=== PATIENT | female | born 1945 | race Caucasian/White ===

== ENCOUNTER 2016-08-18 02:17 | Inpatient (IN) | payer MEDICARE, OTHER ==
[2016-08-15 13:23] LABS: BILIRUBIN NEGATIVE (NEGATIVE); BLOOD NEGATIVE (NEGATIVE); CLARITY SL CLOUDY (CLEAR); COLOR YELLOW (YELLOW); GLUCOSE NEGATIVE (NEGATIVE); KETONE NEGATIVE (NEGATIVE); LEUKO ESTERASE TRACE (NEGATIVE); NITRITE NEGATIVE (NEGATIVE); PH 5.5 (5.0-9.0); PROTEIN NEGATIVE (NEGATIVE)
[2016-08-15 13:29] LABS: BACTERIA TRACE; EPITHELIAL CELLS 16-20; URINE REFLEX COMMENT YES (NO)
[2016-08-15 13:30] LABS: HYALINE CAST 0-2
[2016-08-18] VITALS (8 sets, daily range): BP systolic 105–165; BP diastolic 42–68
[~2016-08-18] VITALS: Ht 172.7 cm; Wt 99.4 kg
--- NOTE | ~2016-08-18 | O ---
[place], [place] OPERATIVE NOTE NAME: ERICK REYNOLDS [facility] #: [id number] UNIT #: [id number] ROOM: [facility] DOCTOR: CHUANCEY GRIFFITH DO BIRTHDATE: [birth year] DOS: 08/18/2016 PREOPERATIVE DIAGNOSIS: Left proximal humerus fracture with displacement and intra-articular fracture of the head. POSTOPERATIVE DIAGNOSIS: Left proximal humerus fracture with displacement and intra-articular fracture of the head. PROCEDURE: Left proximal humerus hemiarthroplasty. SURGEON: Chauncey Griffith DO. ORDER MANAGEMENT SPECIALIST: Obey Collins. ANESTHESIA: ALISIA Sanchez. INDICATIONS: The patient is a 71-year-old female with a history of a fall at her home on August 06, 2016, suffering a comminuted displaced proximal humerus fracture with intraarticular involvement. The risks and benefits of surgery were explained to the patient preoperatively. Preoperative labs and x-rays were obtained including preoperative medical clearance. The left upper extremity was marked in the holding room. The patient was brought to the operative suite. A general anesthetic with endotracheal intubation was performed. The patient was placed in a modified beach chair position with prep and drape of the right upper extremity free. A timeout was performed. An extended deltopectoral incision was marked with a marking pen. The area was injected with Marcaine 0.5% with epinephrine. The patient received clindamycin preoperatively. The incision was made sharply with a scalpel. Cephalic vein was identified and mobilized and then tied off. The deltopectoral fascia was released and the incision progressed to the level of the conjoined tendon. The conjoined tendon was retracted and the bicipital groove and greater and lesser tuberosity were identified. The inner fold between the subscapularis and the supraspinatus was identified and the biceps tendon was noted to be intact. A suture was placed at the level of the greater and lesser tuberosity fragments and these were retracted. The humeral head was identified and noted to be split. This was removed using an oscillating saw to remove the portion of metaphysis remaining. The humeral shaft was prepared using the T-handle handheld reamer and progressed in 1 mm increments until a snug fit was noted. This appeared to be a 10 mm reamer. The trial was put into place. The retroversion was obtained and the head length was measured. The trial head was put into place and the reduction was performed. C-arm was utilized to evaluate the position and the greater and lesser tuberosity were temporarily brought back into place. When the appropriate size stem and head were determined, the prosthesis was placed with the anterolateral fin just lateral to the bicipital groove. The fit was evaluated and found to be [place], [place] OPERATIVE NOTE NAME: ERICK REYNOLDS UNIT #: [id number] ROOM: 532 DOCTOR: CHAUNCEY GRIFFITH DO BIRTHDATE: [birth year] adequate. The humeral head prosthesis 44 mm x 17 mm was cold welded into place. The reduction was again performed and x-rays confirmed satisfactory position. There were 2 sutures passed through the slots within the fins that were 5-0 FiberWire type sutures. These were used to reattach the greater and lesser tuberosity in a [id number] fashion. The biceps tendon was allowed to return to the bicipital groove. Supraspinatus was repaired. The reduction was again performed and verified. The repair was reinforced. Range of motion was performed under C-arm guidance. The area was copiously irrigated with normal saline. The wound was closed in a layered fashion with 2-0 Vicryl, 6-0 Vicryl, 3-0 Vicryl and skin parker. The incision was completed with parker. The area was covered with Xeroform, 4 x 4s, ABDs, and Tegaderm dressing. The patient was placed in a sling and swathe with an abduction pillow in place. The patient was returned to supine position. The anesthetic was reversed. The patient was extubated and taken to the recovery room in satisfactory condition. SPONGE AND NEEDLE COUNT: Correct. ESTIMATED BLOOD LOSS: 300 mL. SPECIMENS: Humeral head. DRAINS: None. PACKING: None. COMPLICATIONS: None. FINDINGS: Comminuted displaced humeral head and proximal humerus fracture. IMPLANTS: 1. Biomet comprehensive humeral fracture stem porous 10 mm x 122 mm. 2. Bio-modular humeral head 44 mm x 17 mm. [place], [place] OPERATIVE NOTE NAME: ERICK REYNOLDS UNIT #: [id number] ROOM: 532 DOCTOR: MARY DOCHAUNCEY BIRTHDATE: [birth year] CHAUNCEY GRIFFITH DO CM:ALMAORD:OPERATIVE NOTE [id number] 143 CHAUNCEY GRIFFITH DO 09/01/16 143 interface
[~2016-08-18 02:17] MED LIST: AMLODIPINE BESY1 C11 PO; ASPIRIN81 M1 PO; ATIVAN1 MG PO; CELEBREX100 MG PO; CIPRO500 MG PO; CYMBALTA60 MG PO; DULOXETINE HCL60 MG PO; FLAXSEED1000 MG PO; GLUCOSAMINE1000 MG PO; HYDROCHLOROTHIA25 M1 PO; HYDROCODONE BIT1 T11 PO; LOMOTIL 0.025 M1 TAB PO; LYRICA100 M1 PO; Lopressor25 MG PO; MAG-OX 400400 MG PO; NAPROSYN500 MG PO; PANTOPRAZOLE SO40 MG PO; VITAMIN D1000 IU PO; ZOFRAN ODT8 MG PO; ZYRTEC10 M3 PO; [UNRECOGNIZED DRUG - OTHER] PO
[2016-08-18 16:47] LABS: HEMATOCRIT 32.3 % (37.0-47.0); HEMOGLOBIN 10.4 g/dl (12.0-16.0); HEMOGLOBIN 10.5 g/dl (12.0-16.0); MEAN CELL VOLUME 91.5 fl (81.0-99.0); MEAN CORPUSCULAR HGB 29.7 pg (27.0-31.0); MEAN CORPUSCULAR HGB CONC 32.5 g/dl (33.0-37.0); MEAN PLATELET VOLUME 9.2 fl (9.6-12.3); PLATELET COUNT AUTOMATED 441 10*3/uL (130-400); RED BLOOD COUNT 3.53 10*6/uL (4.10-5.10); RED CELL DISTRI WIDTH 13.5 % (0-14.5); WHITE BLOOD COUNT 16.6 10*3/uL (4.8-10.8)
[2016-08-18 17:05] LABS: LYMPHOCYTE # 1.5 10*3/uL (1.3-4.4); MONOCYTE # 0.3 10*3/uL (0.1-1.0); NEUTROPHIL # 14.8 10*3/uL (2.3-7.9); NEUTROPHILS 89 % (47-73); PLATELET SUFFICIENCY HIGH (NORMAL); TOTAL CELLS COUNTED 100 #CELLS
[2016-08-18] MEDS ORDERED: BACTRIM DS 8001 TA1 PO (18:31)
[2016-08-18] MEDS ORDERED: BACTROBAN OINT0.9 GM T (18:31)
[2016-08-18] MEDS ORDERED: VITAMIN D-32000 UNIT PO (18:33)
[2016-08-18] MEDS ORDERED: CELECOXIB200 M1 PO (18:35)
[2016-08-19] VITALS: BP 149/71
[2016-08-19 06:21] LABS: BASO % 0.1 % (0.0-1.0); EOS % 0.1 % (1.0-4.0); HEMATOCRIT 27.3 % (37.0-47.0); HEMOGLOBIN 8.8 g/dl (12.0-16.0); IG # 0.1 10*3/uL (0.0-0.1); LYMPH # 1.2 10*3/uL (1.3-4.4); LYMPH % 7.2 % (27.0-41.0); MEAN CELL VOLUME 91.3 fl (81.0-99.0); MEAN CORPUSCULAR HGB 29.4 pg (27.0-31.0); MEAN CORPUSCULAR HGB CONC 32.2 g/dl (33.0-37.0); MEAN PLATELET VOLUME 9.1 fl (9.6-12.3); MONO # 1.1 10*3/uL (0.1-1.0); MONO % 6.6 % (3.0-9.0); NEUT # 14.1 10*3/uL (2.3-7.9); NEUT % 85.2 % (47.0-73.0); PLATELET COUNT AUTOMATED 447 10*3/uL (130-400); RED BLOOD COUNT 2.99 10*6/uL (4.10-5.10); RED CELL DISTRI WIDTH 13.5 % (0-14.5); WHITE BLOOD COUNT 16.5 10*3/uL (4.8-10.8)
[2016-08-19 06:37] LABS: PROTHROMBIN TIME 10.7 SECONDS (9.0-12.4)
[2016-08-19 06:48] LABS: ALBUMIN 3.2 gm/dl (3.1-4.5); BILIRUBIN, TOTAL 0.5 mg/dl (0.2-1.0); BUN 23 mg/dl (7-24); CARBON DIOXIDE 24 mmol/L (21-32); CHLORIDE 99 mmol/L (98-107); GLUCOSE 119 mg/dL (65-99); MAGNESIUM 2.1 mg/dL (1.5-2.1); SODIUM 136 mmol/L (136-145)
[2016-08-19 06:58] LABS: ALKALINE PHOSPHATASE 88 U/L (45-117); CHOLESTEROL 167 mg/dL (<200); EST GLOM FILT AFRICAN AMERICAN > 60 ml/min; HDL CHOLESTEROL 42 mg/dl (40-60); LDL CHOLESTEROL 96 mg/dL (9-159); PHOSPHOROUS 4.5 mg/dL (2.5-4.9); SGOT/AST 23 IU/L (3-35); SGPT/ALT 22 U/L (12-78); THYROID STIM HORMONE (HS) 0.815 uIU/ml (0.358-4.75); TOTAL PROTEIN 6.3 gm/dL (6.4-8.2); TRIGLYCERIDES 144 mg/dl (<150); VLDL CHOLESTEROL 29 mg/dL (6-40)
[2016-08-19 07:44] LABS: HEMOGLOBIN A1c 5.3 % (4.8-5.6)
[2016-08-19 08:00] VITALS: BP 136/54
[2016-08-19 08:07] LABS: FOLIC ACID 13.95 ng/mL (>5.38); VITAMIN D, 25-HYDROXY 36.5 ng/mL (30-100)
[2016-08-19 12:00] VITALS: BP 147/61
[2016-08-19] MEDS ORDERED: APAP/OXYCODONE1 TA2 PO (15:13)
[2016-08-19] MEDS ORDERED: ZOFRAN4 MG PO (15:34)
[2016-08-19] MEDS ORDERED: PERCOCET 325 MG1 TA5 PO (15:34)
[2016-08-19 16:00] VITALS: BP 129/61
== END 2016-08-19 16:47 | disposition home health service (06) | DRG 483 ==
LOC: SDC 02:17 → 5E 13:58
PROVIDERS: Internal Medicine; Orthopaedic Surgery; Student in an Organized Health Care Education/Training Program
PROC: 0RRK0J6 Replacement of Left Shoulder Joint with Synthetic Substitute, Humeral Surface, Open Approach (ICD-10-PCS; principal; 2016-08-18)
DX: S42.292A Other displaced fracture of upper end of left humerus, initial encounter for closed fracture (principal); E44.0 Moderate protein-calorie malnutrition; G62.9 Polyneuropathy, unspecified; Z96.653 Presence of artificial knee joint, bilateral; N18.9 Chronic kidney disease, unspecified; I12.9 Hypertensive chronic kidney disease with stage 1 through stage 4 chronic kidney disease, or unspecified chronic kidney disease; K21.9 Gastro-esophageal reflux disease without esophagitis; W01.0XXA Fall on same level from slipping, tripping and stumbling without subsequent striking against object, initial encounter; M19.90 Unspecified osteoarthritis, unspecified site; D64.9 Anemia, unspecified; G89.29 Other chronic pain; Z88.1 Allergy status to other antibiotic agents; Z79.82 Long term (current) use of aspirin; Z79.899 Other long term (current) drug therapy; Y93.89 Activity, other specified; Y92.89 Other specified places as the place of occurrence of the external cause; Y99.8 Other external cause status; Z68.38 Body mass index [BMI] 38.0-38.9, adult

== ENCOUNTER 2016-08-21 14:12 | Inpatient (IN) | payer MEDICARE, OTHER ==
[~2016-08-21] VITALS: Ht 160 cm; Wt 99.0 kg
--- NOTE | ~2016-08-21 | CON ---
[place], [place] REPORT OF CONSULTATION NAME: ERICK REYNOLDS UNIT #: [id number] ROOM: 412 DOCTOR: WINDY RODRIGUEZ,BLAIRE BIRTHDATE: [birth year] DOS: 08/22/2016 CARDIOLOGY CONSULTATION REASON FOR CONSULTATION: Elevated troponin. CLINICAL HISTORY: The patient is a 71-year-old patient with history of hypertension, chronic kidney disease, ____ with abdominal pain, nausea, vomiting. She had a recent shoulder surgery on and due to her abdominal symptoms and nausea, she came into the Emergency Room and was admitted to the hospital and she noted to have slightly elevated second set of cardiac troponin 0.69 and the Cardiology consulted. However, the third troponin was normal at the time of my examination, but she denies any chest pain, shortness of breath or palpitations. No dizziness, no edema, no orthopnea, no fever or chills, no cough, no hemoptysis. No headache. No blurred vision or double vision. REVIEW OF SYSTEMS: Review of the 8 systems negative except as mentioned above. PAST MEDICAL HISTORY: 1. Hypertension. 2. Chronic kidney disease. 3. Recent left shoulder surgery from fracture. 4. Anemia. 5. Acid reflux. 6. Osteoarthritis. 7. Obesity. PAST SURGICAL HISTORY: History of carpal tunnel surgery, rotator cuff surgery, bilateral knee surgeries. SOCIAL HISTORY: The patient does not smoke or drink. No illicit drugs. FAMILY HISTORY: Mother has chronic kidney disease and father had a cancer. ALLERGIES: THE PATIENT IS ALLERGIC TO AMOXICILLIN. HOME MEDICATIONS: Reviewed. PHYSICAL EXAMINATION: VITAL SIGNS: Blood pressure 138/78, pulse 60, respiratory rate 20. Weight is 99 kilos. GENERAL: Alert, comfortable, in no acute distress. HEENT: Pupils are round and equal. No jaundice. Tongue was moist. NECK: Supple, no distended neck veins, no carotid bruit. CHEST: Chest wall nontender. LUNGS: Clear to auscultation bilaterally. HEART: Regular rhythm. No S3. ABDOMEN: Bowel sounds normal. EXTREMITIES: Showed nonpitting edema. The left arm is in sling. Distal pulses [place], [place] REPORT OF CONSULTATION NAME: ERICK REYNOLDS UNIT #: [id number] ROOM: 412 DOCTOR: BLAIRE TEMPLE MD BIRTHDATE: [birth year] are palpable. No cyanosis. No clubbing. SKIN: Warm and dry. NEUROLOGIC: The patient is alert, oriented. No focal neurologic deficit. RECTAL: Deferred. GENITOURINARY: Deferred. REVIEW OF THE DIAGNOSTIC TESTS: EKG showed normal sinus rhythm with LV hypertrophy and nondiagnostic inferior Q-waves. CBC, chemistry, and cardiac troponin, the first was normal at 0.015, the second was 0.67, and the third was normal. CK-MB was 0.7. White cell count was ____, hemoglobin 8.7. Creatinine is 1.28. TSH was normal. The magnesium was normal. IMPRESSION: 1. Borderline elevation of troponin, nondiagnostic, the first and the third sets are normal, this is possibly due to her acute renal insufficiency. 2. Nausea, vomiting, abdominal pain due to colitis. 3. Acute renal insufficiency. 4. Leukocytosis. 5. Anemia. 6. Hypertension. 7. History of acid reflux. 8. History of neurocardiogenic syncope. 9. Recent left shoulder surgery. 10. Status post bilateral knee replacements. RECOMMENDATIONS: 1. She appears to be stable in the cardiac standpoint, blood pressure and heart rates are stable. 2. Continue her current medications. 3. Again, EKG showed no acute ischemic changes and she is asymptomatic, so no further cardiac testing at this time. 4. I would recommend outpatient testing such as 2D echo and stress test when she is more stable. 5. She will follow up with our cardiology office in 2-4 weeks as an outpatient and preferably we will try to set her up to see Dr. Bowen, who knew her from the previous encounters. 6. The above treatment was discussed with the patient and her family member who is at bedside and all questions answered. 7. Risk factor modification per exercise, diet and weight loss was discussed. Thank you, Dr. Pelletier, for asking me to evaluate this patient and we will see her as needed basis during current admission. [place], [place] REPORT OF CONSULTATION NAME: ERICK REYNOLDS UNIT #: [id number] ROOM: [facility] DOCTOR: BLAIRE TEMPLE MD BIRTHDATE: [birth year] BLAIRE TEMPLE MD CM:CONSTR:REPORT OF CONSULTATION 1150 08/23/16 2126 interface
--- NOTE | ~2016-08-21 | PROC NOTE ---
[place], [place] PROCEDURE NOTE NAME: ERICK REYNOLDS UNIT #: [id number] ROOM: 412 DOCTOR: VIRGINIA HEAD DO BIRTHDATE: [birth year] DOS: 08/21/2016 Dictating on behalf of attending Dr. Oswaldo Pelletier PROCEDURE: Central venous catheter placement. INDICATIONS: Hemodynamic monitoring and IV access. DESCRIPTION OF PROCEDURE: A time-out was completed, verifying correct patient, procedure, site, position. The patient was placed in a dependent position appropriate for central line placement based on the vein to be cannulated, which was the right internal jugular vein. The patient's right neck was prepped and draped in sterile fashion. Then, 2% lidocaine was used to anesthetize the surrounding skin area. A triple lumen catheter was introduced into the right internal jugular vein using the Seldinger technique and under ultrasound guidance. The catheter was threaded smoothly over the guidewire and appropriate blood return was obtained. Each lumen of the catheter was evacuated of air and flushed with sterile saline. The catheter was then sutured in place to the skin. Sterile dressing was applied. Perfusion to the extremity distal to the point of catheter insertion was checked and found to be adequate. Dr. Oswaldo Pelletier was present for the entire procedure. Estimated blood loss was less than 5 mL. The patient tolerated the procedure well. There were no complications. A stat chest x-ray was ordered and did confirm appropriate right IJ line placement and no pneumothorax was seen. VIRGINIA HEAD DO OSWALDO PELLETIER DO CM:PROCNOTE:PROCEDURE NOTE [id number] VIRGINIA HEAD DO
[2016-08-21 14:12] VITALS: BP 88/66
[~2016-08-21 14:12] MED LIST changes: +APAP/OXYCODONE1 TA2 PO; +BACTRIM DS 8001 TA1 PO; +BACTROBAN OINT0.9 GM T; +CELECOXIB200 M1 PO; +PERCOCET 325 MG1 TA5 PO; +VITAMIN D-32000 UNIT PO; +ZOFRAN4 MG PO
[2016-08-21 15:31] VITALS: BP 92/50
[2016-08-21 15:51] VITALS: BP 100/56
[2016-08-21] MEDS ORDERED: CELEBREX100 MG PO (15:53)
[2016-08-21] MEDS ORDERED: AMLODIPINE BESY1 C11 PO (15:53)
[2016-08-21] MEDS ORDERED: LYRICA100 M1 PO ×2 (16:00→18:35)
[2016-08-21] MEDS ORDERED: METOPROLOL25 MG PO (16:03)
[2016-08-21] MEDS ORDERED: HYDROCHLOROTHIA25 M1 PO (16:03)
[2016-08-21] MEDS ORDERED: CYMBALTA60 MG PO (16:03)
[2016-08-21] MEDS ORDERED: PROTONIX40 MG PO (16:04)
[2016-08-21] MEDS ORDERED: VITAMIN D1000 IU PO (16:04)
[2016-08-21] MEDS ORDERED: LORAZEPAM1 MG PO (16:04)
[2016-08-21] MEDS ORDERED: FLAX OIL1000 M1 PO (16:05)
[2016-08-21] MEDS ORDERED: GLUCOSAMINE1000 MG PO (16:05)
[2016-08-21] MEDS ORDERED: ASPIRIN81 M1 PO (16:05)
[2016-08-21] MEDS ORDERED: ZYRTEC10 MG PO (16:05)
[2016-08-21] MEDS ORDERED: TYLENOL325 M1 PO (16:06)
[2016-08-21] MEDS ORDERED: [UNRECOGNIZED DRUG - OTHER] (16:06)
[2016-08-21 17:08] VITALS: BP 124/66
[2016-08-21 18:19] LABS: HEMATOCRIT 32.4 % (37.0-47.0); HEMOGLOBIN 10.6 g/dl (12.0-16.0); MEAN CELL VOLUME 91.8 fl (81.0-99.0); MEAN CORPUSCULAR HGB CONC 32.7 g/dl (33.0-37.0); PLATELET COUNT AUTOMATED 541 10*3/uL (130-400); RED BLOOD COUNT 3.53 10*6/uL (4.10-5.10); RED CELL DISTRI WIDTH 13.4 % (0-14.5); WHITE BLOOD COUNT 21.3 10*3/uL (4.8-10.8)
[2016-08-21 18:20] VITALS: BP 114/56
[2016-08-21] MEDS ORDERED: ZOFRAN4 MG PO (18:32)
[2016-08-21] MEDS ORDERED: PERCOCET 325 MG1 TA5 PO (18:33)
[2016-08-21 18:43] LABS: ALBUMIN 2.8 gm/dl (3.1-4.5); ALKALINE PHOSPHATASE 97 U/L (45-117); BILIRUBIN, TOTAL 0.8 mg/dl (0.2-1.0); BUN 39 mg/dl (7-24); CARBON DIOXIDE 20 mmol/L (21-32); CHLORIDE 104 mmol/L (98-107); EST GLOM FILT AFRICAN AMERICAN 39 ml/min; GLUCOSE 159 mg/dL (65-99); LYMPHOCYTE # 1.1 10*3/uL (1.3-4.4); MONOCYTE # 0.6 10*3/uL (0.1-1.0); NEUTROPHIL # 19.6 10*3/uL (2.3-7.9); NEUTROPHILS 92 % (47-73); PLATELET SUFFICIENCY HIGH (NORMAL); POLYCHROMASIA SLIGHT; POTASSIUM 4.5 mmol/L (3.5-5.1); SGOT/AST 23 IU/L (3-35); SGPT/ALT 23 U/L (12-78); SODIUM 137 mmol/L (136-145); TOTAL CELLS COUNTED 100 #CELLS; TOTAL PROTEIN 6.2 gm/dL (6.4-8.2)
[2016-08-21 18:47] LABS: TROPONIN I < 0.015 ng/ml (<0.045)
[2016-08-21 20:00] VITALS: BP 103/65
[2016-08-22] VITALS: BP 108/73
[2016-08-22 00:25] LABS: CKMB 1.3 ng/ml (0.5-3.6)
[2016-08-22 00:27] LABS: TROPONIN I 0.067 ng/ml (<0.045)
[2016-08-22 06:09] LABS: CPK 86 U/L (26-192)
[2016-08-22 06:14] LABS: BASO % 0.1 % (0.0-1.0); HEMATOCRIT 27.3 % (37.0-47.0); HEMOGLOBIN 8.7 g/dl (12.0-16.0); IG # 0.1 10*3/uL (0.0-0.1); LYMPH # 0.9 10*3/uL (1.3-4.4); LYMPH % 4.9 % (27.0-41.0); MEAN CELL VOLUME 91.3 fl (81.0-99.0); MEAN CORPUSCULAR HGB 29.1 pg (27.0-31.0); MEAN CORPUSCULAR HGB CONC 31.9 g/dl (33.0-37.0); MEAN PLATELET VOLUME 9.1 fl (9.6-12.3); MONO % 5.9 % (3.0-9.0); NEUT # 15.6 10*3/uL (2.3-7.9); NEUT % 88.5 % (47.0-73.0); PLATELET COUNT AUTOMATED 509 10*3/uL (130-400); RED BLOOD COUNT 2.99 10*6/uL (4.10-5.10); RED CELL DISTRI WIDTH 13.4 % (0-14.5); WHITE BLOOD COUNT 17.6 10*3/uL (4.8-10.8)
[2016-08-22 06:21] LABS: PROTHROMBIN TIME 10.7 SECONDS (9.0-12.4)
[2016-08-22 06:25] LABS: TROPONIN I < 0.015 ng/ml (<0.045)
[2016-08-22 06:29] LABS: ALBUMIN 2.6 gm/dl (3.1-4.5); BILIRUBIN, TOTAL 0.7 mg/dl (0.2-1.0); PHOSPHOROUS 3.8 mg/dL (2.5-4.9); POTASSIUM 4.4 mmol/L (3.5-5.1); TOTAL PROTEIN 5.7 gm/dL (6.4-8.2)
[2016-08-22 08:00] VITALS: BP 138/70
[2016-08-22 11:59] LABS: CKMB 0.7 ng/ml (0.5-3.6); CPK 65 U/L (26-192); TROPONIN I < 0.015 ng/ml (<0.045)
[2016-08-22 12:00] VITALS: BP 111/47
[2016-08-22 16:00] VITALS: BP 149/55
[2016-08-22 16:10] LABS: BILIRUBIN NEGATIVE (NEGATIVE); BLOOD TRACE-INTACT (NEGATIVE); CLARITY CLEAR (CLEAR); COLOR YELLOW (YELLOW); GLUCOSE NEGATIVE (NEGATIVE); KETONE NEGATIVE (NEGATIVE); LEUKO ESTERASE NEGATIVE (NEGATIVE); NITRITE NEGATIVE (NEGATIVE); PROTEIN NEGATIVE (NEGATIVE); UROBILINOGEN 0.2 E.U./dl (0.2-1.0)
[2016-08-22 16:20] LABS: BACTERIA TRACE; EPITHELIAL CELLS 15-20; URINE REFLEX COMMENT NO (NO)
[2016-08-22 20:00] VITALS: BP 113/55
[2016-08-23] VITALS: BP 128/74
[2016-08-23 06:43] LABS: BASO % 0.1 % (0.0-1.0); EOS # 0.1 10*3/uL (0.0-0.4); EOS % 0.5 % (1.0-4.0); HEMATOCRIT 23.2 % (37.0-47.0); HEMOGLOBIN 7.7 g/dl (12.0-16.0); IG # 0.1 10*3/uL (0.0-0.1); LYMPH # 1.5 10*3/uL (1.3-4.4); MEAN CELL VOLUME 90.6 fl (81.0-99.0); MEAN CORPUSCULAR HGB 30.1 pg (27.0-31.0); MEAN CORPUSCULAR HGB CONC 33.2 g/dl (33.0-37.0); MEAN PLATELET VOLUME 8.8 fl (9.6-12.3); MONO # 1.1 10*3/uL (0.1-1.0); MONO % 7.2 % (3.0-9.0); NEUT # 12.2 10*3/uL (2.3-7.9); NEUT % 81.7 % (47.0-73.0); PLATELET COUNT AUTOMATED 404 10*3/uL (130-400); RED BLOOD COUNT 2.56 10*6/uL (4.10-5.10); RED CELL DISTRI WIDTH 13.5 % (0-14.5); WHITE BLOOD COUNT 14.9 10*3/uL (4.8-10.8)
[2016-08-23 07:31] LABS: CARBON DIOXIDE 21 mmol/L (21-32); CHLORIDE 104 mmol/L (98-107); EST GLOM FILT AFRICAN AMERICAN > 60 ml/min; GLUCOSE 102 mg/dL (65-99); POTASSIUM 3.6 mmol/L (3.5-5.1); SODIUM 139 mmol/L (136-145)
[2016-08-23 07:37] LABS: BUN 19 mg/dl (7-24)
[2016-08-23 08:00] VITALS: BP 130/70
[2016-08-23 12:00] VITALS: BP 99/50
[2016-08-23 16:00] VITALS: BP 108/52
[2016-08-23 20:00] VITALS: BP 120/50
[2016-08-24] VITALS: BP 118/63
[2016-08-24 08:00] VITALS: BP 154/60
[2016-08-24 12:00] VITALS: BP 107/50
[2016-08-24] MEDS ORDERED: FLAGYL500 MG PO (15:35)
[2016-08-24] MEDS ORDERED: CIPRO500 MG PO (15:35)
[2016-08-24 16:26] VITALS: BP 131/81
== END 2016-08-24 16:58 | disposition home health service (06) | DRG 871 ==
LOC: ED 14:12 → EDHOLD 18:11 → 4E 18:11
PROVIDERS: Family Medicine Adult Medicine; Internal Medicine; Student in an Organized Health Care Education/Training Program
PROC: 02HV33Z Insertion of Infusion Device into Superior Vena Cava, Percutaneous Approach (ICD-10-PCS; principal; 2016-08-21)
PROC: B543ZZA Ultrasonography of Right Jugular Veins, Guidance (ICD-10-PCS; principal; 2016-08-21)
DX: A41.9 Sepsis, unspecified organism (principal); N17.0 Acute kidney failure with tubular necrosis; E43 Unspecified severe protein-calorie malnutrition; K21.9 Gastro-esophageal reflux disease without esophagitis; N18.3 Chronic kidney disease, stage 3 (moderate); I12.9 Hypertensive chronic kidney disease with stage 1 through stage 4 chronic kidney disease, or unspecified chronic kidney disease; M19.90 Unspecified osteoarthritis, unspecified site; R65.20 Severe sepsis without septic shock; K52.9 Noninfective gastroenteritis and colitis, unspecified; G89.29 Other chronic pain; G62.9 Polyneuropathy, unspecified; E55.9 Vitamin D deficiency, unspecified; D63.1 Anemia in chronic kidney disease; E66.9 Obesity, unspecified; Z96.653 Presence of artificial knee joint, bilateral; Z88.1 Allergy status to other antibiotic agents; Z80.9 Family history of malignant neoplasm, unspecified; Z84.1 Family history of disorders of kidney and ureter; Z79.1 Long term (current) use of non-steroidal anti-inflammatories (NSAID); Z79.82 Long term (current) use of aspirin; Z79.899 Other long term (current) drug therapy; Z68.38 Body mass index [BMI] 38.0-38.9, adult

== ENCOUNTER → 2016-08-31 | Outpatient (CLI) | payer MEDICARE, OTHER ==
[~2016-08-31] MED LIST changes: +FLAGYL500 MG PO; +FLAX OIL1000 M1 PO; +LORAZEPAM1 MG PO; +METOPROLOL25 MG PO; +PROTONIX40 MG PO; +TYLENOL325 M1 PO; +ZYRTEC10 MG PO; +[UNRECOGNIZED DRUG - OTHER]
== END | disposition home or self-care (01) ==
LOC: ORTHO 04:04
DX: S42.302D Unspecified fracture of shaft of humerus, left arm, subsequent encounter for fracture with routine healing (principal); X58.XXXD Exposure to other specified factors, subsequent encounter; Z91.81 History of falling

== ENCOUNTER → 2016-09-14 | Outpatient (CLI) | payer MEDICARE, OTHER | END | disposition home or self-care (01) | LOC: ORTHO 02:32 | DX: S42.302A Unspecified fracture of shaft of humerus, left arm, initial encounter for closed fracture (principal); M19.012 Primary osteoarthritis, left shoulder; M81.0 Age-related osteoporosis without current pathological fracture; X58.XXXA Exposure to other specified factors, initial encounter; Y93.89 Activity, other specified; Y92.89 Other specified places as the place of occurrence of the external cause; Y99.8 Other external cause status; Z96.612 Presence of left artificial shoulder joint ==

== ENCOUNTER → 2016-10-12 | Outpatient (CLI) | payer MEDICARE, OTHER | END | disposition home or self-care (01) | LOC: ORTHO 01:00 | DX: S42.202D Unspecified fracture of upper end of left humerus, subsequent encounter for fracture with routine healing (principal); X58.XXXD Exposure to other specified factors, subsequent encounter ==

== ENCOUNTER → 2016-11-09 | Outpatient (CLI) | payer MEDICARE, OTHER | END | disposition home or self-care (01) | LOC: ORTHO 02:10 | DX: S42.92XD Fracture of left shoulder girdle, part unspecified, subsequent encounter for fracture with routine healing (principal); Z96.612 Presence of left artificial shoulder joint; X58.XXXD Exposure to other specified factors, subsequent encounter ==

== ENCOUNTER → 2017-01-13 | Outpatient (CLI) | payer MEDICARE, OTHER | END | disposition home or self-care (01) | LOC: US 12:50 | DX: I65.23 Occlusion and stenosis of bilateral carotid arteries (principal) ==

== ENCOUNTER 2023-10-27 14:27 | Emergency (ER) | payer MEDICARE, OTHER ==
[~2023-10-27] VITALS: Ht 160 cm; Wt 93.0 kg
== END 2023-10-27 16:30 | disposition home or self-care (01) ==
LOC: ED 14:27
DX: S01.01XA Laceration without foreign body of scalp, initial encounter (principal); M54.2 Cervicalgia; Z88.1 Allergy status to other antibiotic agents; Z79.899 Other long term (current) drug therapy; Z79.2 Long term (current) use of antibiotics; Z79.82 Long term (current) use of aspirin; Z98.890 Other specified postprocedural states; Z96.662 Presence of left artificial ankle joint; W18.39XA Other fall on same level, initial encounter; Y93.89 Activity, other specified; Y92.89 Other specified places as the place of occurrence of the external cause; Y99.8 Other external cause status

== ENCOUNTER → 2024-02-21 | Day surgery (SDC) | payer MEDICARE, OTHER ==
[~2024-02-21] VITALS: Ht 160 cm; Wt 86.2 kg
[~2024-02-21] MED LIST changes: +ALLOPURINOL100 MG PO; +AMLODIPINE BESYL5 MG PO; +Albuterol Sulf/Ipratropium 3 ML VIAL NEB ONE; +Albuterol Sulfate 2.5 MG/0.5 ML VIAL NEB ONE; +CHLORTHALIDONE25 MG PO; +Dexamethasone Sodium Phospha 4 MG/ML VIAL IV ONE; +EPINEPHrine Hydrochloride 1 MG/10 ML SYR IV ONE; +GEMTESA75 MG PO; +LEVOFLOXACIN500 MG PO; +LYRICA75 M1 PO; +Lactated Ringer's Solution 1,000 ML IV ONE; +Lidocaine Hydrochloride 4% 5 ML AMP NEB ONE; +Lidocaine Hydrochloride 4% 5 ML AMP ONE; +MAGNESIUM OXID400 MG PO; +MUCUS RELIEF600 MG PO; +MULTIVITAMIN1 EACH PO; +Ondansetron Hydrochloride 4 MG/2 ML VIAL IV ONE; +PEPCID40 MG PO; +PROPOFOL 200 MG/20 ML VIAL IV ONE; +ROCURONIUM BROMIDE 50 MG/5 ML SYRINGE IV ONE; +SEVOFLURANE 250 ML BOT INH ONE; +SUCRALFATE1 GM PO; +SYMB160 INH; +Succinylcholine Chloride 200 MG/10 ML SYRINGE IV ONE; +VENT7GM INH; +VITAMIN C500 M4 PO
[2024-02-21 09:18] VITALS: BP 158/77
[2024-02-21 10:09] VITALS: BP 158/67
[2024-02-21 10:24] VITALS: BP 146/68
[2024-02-21 10:39] VITALS: BP 120/55
[2024-02-21 10:54] VITALS: BP 128/50
[2024-02-21 11:09] VITALS: BP 131/58
[2024-02-22 13:07] LABS: ACID FAST SPEC PROCESSING Concentration (.)
== END | disposition home or self-care (01) ==
LOC: SDC 02-16 10:15
PROVIDERS: ATTEND Internal Medicine Critical Care Medicine
DX: C34.2 Malignant neoplasm of middle lobe, bronchus or lung (principal); J98.11 Atelectasis; I10 Essential (primary) hypertension; K21.9 Gastro-esophageal reflux disease without esophagitis; G47.30 Sleep apnea, unspecified; Z96.652 Presence of left artificial knee joint; Z98.890 Other specified postprocedural states; Z79.899 Other long term (current) drug therapy; Z88.8 Allergy status to other drugs, medicaments and biological substances